=== PATIENT | male | born 2000 | race Caucasian/White ===

== ENCOUNTER 2024-02-25 07:01 | Emergency (ER) | payer BC ==
[2024-02-25] MEDS: Fluorescein 1 MG Ophth Strip EYEBOTH ONE (07:36)
== END 2024-02-25 08:20 | disposition home or self-care (01) ==
LOC: JD.ED 07:01
DX: S05.02XA Injury of conjunctiva and corneal abrasion without foreign body, left eye, initial encounter (principal); X58.XXXA Exposure to other specified factors, initial encounter
CPT/HCPCS: 99283